=== PATIENT | female | born 1975 | race Hispanic/Latino ===

== ENCOUNTER 2018-01-22 17:28 | Inpatient (IN) | payer OTHER ==
[~2018-01-22] VITALS: Ht 157.5 cm; Wt 106.8 kg
[2018-01-22] MEDS ORDERED: ONDANSETRON HCL 4 MG ORAL DISINTEGRATING TAB ONE (18:45)
[2018-01-22 19:22] LABS: BASOPHILS % 0.1 % (0.0-1.0); EOSINOPHILS % 0.1 % (0.0-6.0); HEMATOCRIT 41.5 % (34.2-44.1); HEMOGLOBIN 14.3 g/dL (12.0-16.0); LYMPHOCYTES # (AUTO) 1.9 (1.0-3.2); LYMPHOCYTES % 13.8 % (18.0-39.1); MEAN CORPUSCULAR HGB CONC 34.5 g/dL (31-35); MEAN CORPUSCULAR VOLUME 87.2 fL (81-99); MONOCYTES # (AUTO) 1.1 (0.2-0.8); MONOCYTES % 8.4 % (4.4-11.3); NEUTROPHILS # (AUTO) 10.5 (2.1-6.9); PLATELET COUNT 271 x10e3/uL (140-360); RED BLOOD COUNT 4.76 x10e6/uL (3.6-5.1); RED CELL DISTRIBUTION WIDTH 12.1 % (11.7-14.4)
[2018-01-22 19:24] LABS: CLARITY,URINE CLEAR (CLEAR); COLOR,URINE YELLOW (YELLOW); KETONES,URINE 3+ (NEGATIVE); LEUKOCYTE ESTERASE ,URINE NEGATIVE (NEGATIVE); NITRITE,URINE NEGATIVE (NEGATIVE); PROTEIN,URINE DIPSTICK 1+ (NEGATIVE); URINE UROBILINOGEN 1 mg/dL (0.2 - 1)
[2018-01-22 19:25] LABS: BILIRUBIN,URINE 1+ (NEGATIVE); PREGNANCY TEST, URINE NEGATIVE (NEGATIVE)
[2018-01-22 19:30] LABS: BACTERIA,URINE RARE /HPF; EPITHELIAL CELLS,URINE FEW /LPF; MUCUS,URINE FEW (RARE)
[2018-01-22 19:42] LABS: ALANINE AMINOTRANSFERASE 14 IU/L (0-55); ALBUMIN/GLOBULIN RATIO 0.9 (0.8-2.0); ALKALINE PHOSPHATASE 63 IU/L (40-150); ANION GAP 12.5 mmol/L (8-16); BLOOD UREA NITROGEN 6 mg/dL (7-26); BUN/CREATININE RATIO 8 (6-25); CALCIUM 9.5 mg/dL (8.4-10.2); CARBON DIOXIDE 24 mmol/L (22-29); CHLORIDE 104 mmol/L (98-107); EST GLOMERULAR FILTRATION RATE > 60 ML/MIN (60-); GLUCOSE 117 mg/dL (74-118); MAGNESIUM 1.8 MG/DL (1.3-2.1); POTASSIUM 3.5 mmol/L (3.5-5.1); SODIUM 137 mmol/L (136-145)
[2018-01-22] MEDS ORDERED: PANTOPRAZOLE 40 MG 10ML VIAL IV STA (19:53)
[2018-01-22] MEDS ORDERED: MORPHINE SULFATE 2 MG/ML SYR IV STA (19:53)
[2018-01-22] MEDS ORDERED: SODIUM CHLORIDE 0.9% 1000ML 1,000 ML IV STA (19:53)
[2018-01-22] MEDS ORDERED: ASPIRIN 81 MG ENTERIC COATED PO STA (19:53)
[2018-01-22 20:10] LABS: INR 1.1; PROTHROMBIN TIME 13.4 seconds (11.9-14.5)
[2018-01-22] MEDS ORDERED: DIATRIZOATE MEGL/DIATRIZOA SOD 30 ML BTL PO ONE (20:10)
[2018-01-22 20:15] LABS: CREATINE KINASE 109 IU/L (29-168)
--- NOTE | 2018-01-22 22:12 | Diagnostic Imaging Report ---
EXAM: CT ABDOMEN AND PELVIS with IV CONTRAST DATE: 01/22/2018 7:53 PM Time stamp on Exam: 2137 hours INDICATION: Epigastric pain COMPARISON: None TECHNIQUE: The abdomen and pelvis were scanned using a multidetector helical scanner. Coronal and sagittal reformations were obtained. Routine protocol performed. IV Contrast: 100 cc Isovue 370 Oral Contrast: Gastrografin CTDIvol has been reviewed. It is below the limits set by the Radiation Protocol Committee (RPC). FINDINGS: LOWER THORAX: No consolidations LIVER: No masses BILIARY: Cholelithiasis, gallbladder wall thickening and hydrops. No ductal dilation. SPLEEN: No masses PANCREAS: No masses ADRENALS: No nodules KIDNEYS: Symmetric perfusion. No enhancing masses. No hydronephrosis. GI TRACT: No distention, wall thickening or evidence of obstruction. Normal appendix. VESSELS: Unremarkable PERITONEUM/RETROPERITONEUM: Trace free pelvic fluid. LYMPH NODES: No lymphadenopathy REPRODUCTIVE ORGANS: Unremarkable BLADDER: Unremarkable SOFT TISSUES: Unremarkable BONES: No suspicious bone lesions. IMPRESSION: Findings consistent with acute or chronic cholecystitis including large gallstones, wall thickening and hydropic gallbladder. No ductal dilation. Signed by: Dr. Mary Ahmadi M.D. on 01/22/2018 10:08 PM
--- NOTE | 2018-01-22 22:13 | Diagnostic Imaging Report ---
EXAM: CHEST 2 VIEWS, PA and lateral INDICATION: Epigastric pain COMPARISON: None FINDINGS: LINES/TUBES: None LUNGS: No consolidations or edema. PLEURA: No effusions or pneumothorax. HEART AND MEDIASTINUM: Normal size and contour. BONES AND SOFT TISSUES: No acute findings. IMPRESSION: No acute thoracic abnormality. Signed by: Dr. Mary Ahmadi M.D. on 01/22/2018 10:09 PM
[2018-01-22] MEDS ORDERED: SODIUM CHLORIDE 0.9% 50ML 50 ML ONE (22:23)
[2018-01-22] MEDS ORDERED: IOPAMIDOL 370 MG/ML 200 ML INFUS..BTL INJ ONE (22:24)
[2018-01-22] MEDS ORDERED: SODIUM CHLORIDE 0.9% 1000ML 1,000 ML IV SCH (23:35)
[2018-01-22] MEDS: PIPER-TAZ 3.375 GM 50 ML IV SCH (23:43)
--- OUTSIDE RECORDS SUMMARY | 2018-01-22 23:44 | XMS REPORT ---
Author Author [facility] Address Unknown Phone Unavailable Care Team Providers Care Bereavement Counselor Name Role Phone DAVI JAMESON Unavailable Unavailable Problems This patient has no known problems. Allergies, Adverse Reactions, Alerts This patient has no known allergies or adverse reactions. Medications This patient has no known medications. Results Test Description Test Time Test Comments Text Results Atomic Results Result Comments CT ABDOMEN/PELVIS W [place] [address] Patient Name: FUENTES ROGERS MR #: [id number] : 1975 Age/Sex: 42/F Req # : [id number] Adm Physician: Ordered by: DAVI JAMESON MD Report #: [id number] Location: ER Room/Bed: Procedure: [id number] CT/CT ABDOMEN/PELVIS W Exam Date: 01/22/18 Exam Time : 2129 REPORT STATUS: Signed EXAM: CT ABDOMEN AND PELVIS with IV CONTRAST DATE: 01/22/2018 7:53 PM Time stamp on Exam: 2137 hours INDICATION : Epigastric pain COMPARISON: None TECHNIQUE: The abdomen and pelvis were scanned using a multidetector helical scanner. Coronal and sagittal reformations were obtained. Routine protocol performed. IV Contrast: 100 cc Isovue 370 Oral Contrast: Gastrografin CTDIvol has been reviewed. It is below the limits set by the Radiation Protocol Committee (RPC). FINDINGS : LOWER THORAX: No consolidations LIVER: No masses BILIARY: Cholelithiasis, gallbladder wall thickening and hydrops. No ductal dilation. SPLEEN: No masses PANCREAS: No masses ADRENALS: No nodules KIDNEYS : Symmetric perfusion. No enhancing masses. No hydronephrosis. GI TRACT: No distention, wall thickening or evidence of obstruction. Normal appendix. VESSELS: Unremarkable PERITONEUM/RETROPERITONEUM: Trace free pelvic fluid. LYMPH NODES: No lymphadenopathy REPRODUCTIVE ORGANS: Unremarkable BLADDER: Unremarkable SOFT TISSUES: Unremarkable BONES: No suspicious bone lesions. IMPRESSION: Findings consistent with acute or chronic cholecystitis including large gallstones, wall thickening and hydropic gallbladder. No ductal dilation. Signed by: Dr. Nayeli Chao M.D. on 01/22/2018 10:08 PM Dictated By: NAYELI CHAO MD 07 Transcribed By: SUMMER on 01/22/182207 COPY TO: DAVI JAMESON MD CHEST 2 VIEWS [place] [address] Patient Name: FUENTES ROGERS MR #: [id number] : 1975 Age/Sex: 42/F Req #: [id number] Adm Physician: Ordered by: DAVI JAMESON MD Report #: [id number] Location: ER Room/Bed: Procedure: [id number] DX/CHEST 2 VIEWS Exam Date: 01/22/18 Exam Time: 2129 REPORT STATUS: Signed EXAM: CHEST 2 VIEWS, PA and lateral INDICATION: Epigastric pain COMPARISON: None FINDINGS: LINES/TUBES: None LUNGS: No consolidations or edema. PLEURA: No effusions or pneumothorax. HEART AND MEDIASTINUM: Normal size and contour. BONES AND SOFT TISSUES: No acute findings. IMPRESSION: No acute thoracic abnormality. Signed by: Dr. Nayeli Chao M.D. on 01/22/2018 10: 09 PM Dictated By: NAYELI CHAO MD 08 Transcribed By: SUMMER on 01/22/182208 COPY TO: DVAI JAMESON MD
[2018-01-22] MEDS ORDERED: ONDANSETRON HCL 4 MG ORAL DISINTEGRATING TAB PO PRN (23:45)
[2018-01-23] VITALS (8 sets, daily range): BP systolic 96–120; BP diastolic 58–69
[2018-01-23] MEDS: PROMETHAZINE 12.5MG/ NACL 0.9% 12.5 MG/50 ML BAG IV PRN (00:10)
[2018-01-23] MEDS: MORPHINE SULFATE 2 MG/ML SYR IV PRN ×2 (00:10→08:52)
[2018-01-23] MEDS: METRONIDAZOLE 500MG/NS 100ML 100 ML IV SCH ×4 (00:16→19:10)
[2018-01-23 03:38] LABS: CREATINE KINASE 80 IU/L (29-168)
[2018-01-23] MEDS: PIPER-TAZ 3.375 GM 50 ML IV SCH ×4 (05:17→23:38)
[2018-01-23] MEDS: ACETAMINOPHEN 325 MG TAB PO PRN ×2 (05:17→21:56)
[2018-01-23 07:04] LABS: BASOPHILS % 0.1 % (0.0-1.0); EOSINOPHILS % 0.1 % (0.0-6.0); HEMOGLOBIN 12.3 g/dL (12.0-16.0); LYMPHOCYTES # (AUTO) 1.6 (1.0-3.2); MEAN CORPUSCULAR HEMOGLOBIN 29.8 pg (28-32); MEAN CORPUSCULAR HGB CONC 34.2 g/dL (31-35); MEAN CORPUSCULAR VOLUME 87.2 fL (81-99); MONOCYTES # (AUTO) 1.3 (0.2-0.8); MONOCYTES % 9.3 % (4.4-11.3); NEUTROPHILS # (AUTO) 10.6 (2.1-6.9); NEUTROPHILS % 78.1 % (38.7-80.0); PLATELET COUNT 215 x10e3/uL (140-360); RED BLOOD COUNT 4.13 x10e6/uL (3.6-5.1); RED CELL DISTRIBUTION WIDTH 12.2 % (11.7-14.4)
[2018-01-23] MEDS: POTASSIUM CHLORIDE 40 MEQ in SODIUM CHLORIDE 0.9% 1000ML 1,000 ML IV SCH ×2 (07:05→20:00)
[2018-01-23 07:39] LABS: ALANINE AMINOTRANSFERASE 12 IU/L (0-55); ALBUMIN 3.1 g/dL (3.5-5.0); ALBUMIN/GLOBULIN RATIO 0.9 (0.8-2.0); ALKALINE PHOSPHATASE 54 IU/L (40-150); AMYLASE 53 U/L (25-125); ANION GAP 13.2 mmol/L (8-16); BLOOD UREA NITROGEN 5 mg/dL (7-26); BUN/CREATININE RATIO 7 (6-25); CALCIUM 8.4 mg/dL (8.4-10.2); CARBON DIOXIDE 21 mmol/L (22-29); CHLORIDE 104 mmol/L (98-107); CREATININE, SERUM 0.71 mg/dL (0.57-1.11); EST GLOMERULAR FILTRATION RATE > 60 ML/MIN (60-); GLUCOSE 110 mg/dL (74-118); LIPASE 14 U/L (8-78); POTASSIUM 3.2 mmol/L (3.5-5.1); SODIUM 135 mmol/L (136-145)
--- NOTE | 2018-01-23 10:02 | History and Physical ---
CHIEF COMPLAINT: Abdominal pain and acute cholecystitis. 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 Pain in the right upper quadrant. Patient had multiple workup done in the emergency room. CT scan of abdomen and pelvis showed consistent with acute cholecystitis, including large stone with thickening of gallbladder and hydrops of gallbladder. The patient is pending for surgical intervention. She did have leukocytosis of 13.6. Patient is stable at this time. PAST MEDICAL HISTORY: Noncontributory. 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 She does not smoke or use alcohol. No recreational drugs. ALLERGIES: NO KNOWN ALLERGY. HOME MEDICATIONS: None. REVIEW OF SYSTEMS: Abdominal pain, nausea and vomiting. PHYSICAL EXAMINATION VITAL SIGNS: Temperature is 98, blood pressure 109/56, pulse rate 97, respirations 22. GENERAL: The patient is not in acute distress. She is awake and in pain, however. HEENT: Normocephalic, atraumatic and anicteric. NECK: Supple grossly. PULMONARY: Clear. CARDIOVASCULAR: Regular rate and rhythm. ABDOMEN: Tenderness with some guarding. No rebound. EXTREMITIES: No cyanosis or edema. NEUROLOGIC: No focal deficit. LABORATORY: Sodium 132, potassium 3.2, chloride 104, bicarb 21, BUN 5, creatinine 0.7, glucose 110. WBC is 13.5, hemoglobin 12.3, hematocrit 36, and platelets is 250,000. CT scan consistent with gallbladder hydrops. IMPRESSION 1. Acute cholecystitis associated with gallbladder hydrops. 2. Abdominal pain, nausea and vomiting. 3. Hypokalemia. PLAN: Change IV fluids. Continue with antibiotics. Patient will need surgical intervention with Dr. Keo Johnson. Will monitor the patient closely. Patient is admitted for treatment. Job#: [id number] RI
[2018-01-23] MEDS ORDERED: POTASSIUM CHLORIDE 40 MEQ in SODIUM CHLORIDE 0.9% 1000ML 1,000 ML IV SCH (10:45)
[2018-01-23 11:36] LABS: CREATINE KINASE 79 IU/L (29-168)
--- NOTE | 2018-01-23 13:02 | Consultation ---
DATE OF CONSULTATION: January 23, 2018 CHIEF COMPLAINT: Abdominal pain. HISTORY OF PRESENT ILLNESS: The patient is a 42-year-old female with a 5-day history of pain in the epigastric area radiating to the back with nausea and vomiting. She also had some subjective fevers. No diarrhea. PAST MEDICAL HISTORY: Positive for no chronic medical illness. SURGICAL HISTORY: Positive for . ALLERGIES: SHE HAS NO DRUG ALLERGIES. SOCIAL HABITS: She does not smoke or drink alcohol. REVIEW OF SYSTEMS: No cough, chest pain or shortness of breath. PHYSICAL EXAMINATION VITAL SIGNS: Stable. Temperature is 101, blood pressure 100/60 with a pulse of 90. GENERAL: She is awake, alert and in moderate discomfort. HEENT: Sclera anicteric. NECK: Supple. LUNGS: Clear. HEART: Regular rate and rhythm. ABDOMEN: Soft with some guarding and tenderness in the epigastric and right upper quadrant. No rebound. EXTREMITIES: With no cyanosis or edema. White cell count is 14, hemoglobin 12. Creatinine of 0.7, bilirubin of 1.6, alkaline phosphatase of 54, and lipase 14. CT of the abdomen showed large stones with distention of the gallbladder wall. ASSESSMENT: Cholelithiasis and probable cholecystitis. PLAN: Laparoscopic cholecystectomy. The attendant risks discussed with the patient. Job#: [id number] SIGRID
[2018-01-23] MEDS ORDERED: BUPIVACAINE 0.25%/EPI 30ML SDV INJ ONE (13:11)
[2018-01-23] MEDS ORDERED: KETOROLAC TROMETHAMINE 30 MG/ML VIAL ONE ×2 (16:54→18:03)
[2018-01-23] MEDS ORDERED: ACETAMINOPHEN 1000 MG/100 ML 100 ML IV ONE (16:54)
[2018-01-23] MEDS ORDERED: ROCURONIUM BROMIDE 10 MG/ML 5ML VIAL ONE (18:03)
[2018-01-23] MEDS ORDERED: LIDOCAINE HCL 2% LOCAL INJ 5 ML SDV VIAL INJ ONE (18:03)
[2018-01-23] MEDS ORDERED: GLYCOPYRROLATE INJ 1MG/ 5 ML SYR ONE (18:03)
[2018-01-23] MEDS ORDERED: DEXAMETHASONE SOD PHOS INJ 4 MG/ML VIAL ONE (18:03)
[2018-01-23] MEDS ORDERED: NEOSTIGMINE 5 MG/5ML SYR ONE (18:03)
[2018-01-23] MEDS ORDERED: SEVOFLURANE INHAL SOLN 250 ML PEN BTL ONE (18:03)
[2018-01-23] MEDS ORDERED: ONDANSETRON HCL INJ 2 MG/ML VIAL ONE (18:03)
[2018-01-23] MEDS ORDERED: PROPOFOL IV EMULSION 10 MG/ML 20 ML VIAL ONE (18:03)
[2018-01-23] MEDS ORDERED: FENTANYL CITRATE/PF 100MCG/2 ML INJ ONE (18:24)
[2018-01-23] MEDS ORDERED: MIDAZOLAM HCL 2 MG/2 ML VIAL ONE (18:24)
[2018-01-23 18:50] LABS: CREATINE KINASE 70 IU/L (29-168)
[2018-01-24] VITALS (7 sets, daily range): BP systolic 98–112; BP diastolic 59–75
[2018-01-24] MEDS: METRONIDAZOLE 500MG/NS 100ML 100 ML IV SCH ×2 (00:35→06:13)
[2018-01-24] MEDS: POTASSIUM CHLORIDE 40 MEQ in SODIUM CHLORIDE 0.9% 1000ML 1,000 ML IV SCH (04:27)
[2018-01-24] MEDS: PIPER-TAZ 3.375 GM 50 ML IV SCH ×3 (05:23→17:00)
[2018-01-24] MEDS: MORPHINE SULFATE 2 MG/ML SYR IV PRN ×2 (06:26→09:25)
[2018-01-24 06:34] LABS: BASOPHILS % 0.1 % (0.0-1.0); HEMATOCRIT 33.5 % (34.2-44.1); HEMOGLOBIN 11.3 g/dL (12.0-16.0); LYMPHOCYTES # (AUTO) 1.2 (1.0-3.2); LYMPHOCYTES % 9.2 % (18.0-39.1); MEAN CORPUSCULAR HEMOGLOBIN 29.8 pg (28-32); MEAN CORPUSCULAR HGB CONC 33.7 g/dL (31-35); MEAN CORPUSCULAR VOLUME 88.4 fL (81-99); MONOCYTES # (AUTO) 0.9 (0.2-0.8); MONOCYTES % 7.1 % (4.4-11.3); NEUTROPHILS % 83.2 % (38.7-80.0); PLATELET COUNT 206 x10e3/uL (140-360); RED BLOOD COUNT 3.79 x10e6/uL (3.6-5.1); RED CELL DISTRIBUTION WIDTH 12.3 % (11.7-14.4)
[2018-01-24 07:07] LABS: ANION GAP 11.6 mmol/L (8-16); BLOOD UREA NITROGEN 10 mg/dL (7-26); BUN/CREATININE RATIO 14 (6-25); CALCIUM 8.4 mg/dL (8.4-10.2); CARBON DIOXIDE 21 mmol/L (22-29); CHLORIDE 106 mmol/L (98-107); EST GLOMERULAR FILTRATION RATE > 60 ML/MIN (60-); GLUCOSE 114 mg/dL (74-118); POTASSIUM 3.6 mmol/L (3.5-5.1); SODIUM 135 mmol/L (136-145)
[2018-01-24] MEDS: PROMETHAZINE 12.5MG/ NACL 0.9% 12.5 MG/50 ML BAG IV PRN (09:25)
[2018-01-24] MEDS ORDERED: KETOROLAC TROMETHAMINE 30 MG/ML VIAL IV PRN (10:00)
[2018-01-24] MEDS ORDERED: MAGNESIUM/ALUMINUM/SIMETHICONE 30 ML UDC PO PRN (10:00)
[2018-01-24] MEDS: FAMOTIDINE 20 MG TAB PO SCH ×2 (11:00→17:00)
[2018-01-24] MEDS: ACETAMINOPHEN/CODEINE 300MG - 30MG TAB PO PRN ×2 (15:01→21:00)
[2018-01-25] VITALS (8 sets, daily range): BP systolic 107–116; BP diastolic 58–84
[2018-01-25] MEDS: ACETAMINOPHEN/CODEINE 300MG - 30MG TAB PO PRN ×2 (01:08→05:46)
[2018-01-25] MEDS ORDERED: SODIUM CHLORIDE 0.9% 250ML 250 ML ONE (04:59)
[2018-01-25] MEDS: PIPER-TAZ 3.375 GM 50 ML IV SCH ×4 (05:45→22:00)
[2018-01-25 07:26] LABS: BASOPHILS % 0.3 % (0.0-1.0); EOSINOPHILS # (AUTO) 0.1 (0.0-0.4); EOSINOPHILS % 1.1 % (0.0-6.0); HEMOGLOBIN 10.8 g/dL (12.0-16.0); LYMPHOCYTES # (AUTO) 1.7 (1.0-3.2); LYMPHOCYTES % 22.2 % (18.0-39.1); MEAN CORPUSCULAR HEMOGLOBIN 30.3 pg (28-32); MEAN CORPUSCULAR HGB CONC 33.8 g/dL (31-35); MEAN CORPUSCULAR VOLUME 89.6 fL (81-99); MONOCYTES # (AUTO) 0.6 (0.2-0.8); MONOCYTES % 7.8 % (4.4-11.3); NEUTROPHILS # (AUTO) 5.2 (2.1-6.9); NEUTROPHILS % 68.2 % (38.7-80.0); PLATELET COUNT 236 x10e3/uL (140-360); RED BLOOD COUNT 3.57 x10e6/uL (3.6-5.1); RED CELL DISTRIBUTION WIDTH 12.8 % (11.7-14.4)
[2018-01-25 07:58] LABS: ANION GAP 9.1 mmol/L (8-16); BLOOD UREA NITROGEN 7 mg/dL (7-26); BUN/CREATININE RATIO 10 (6-25); CALCIUM 8.3 mg/dL (8.4-10.2); CARBON DIOXIDE 24 mmol/L (22-29); CHLORIDE 103 mmol/L (98-107); CREATININE, SERUM 0.69 mg/dL (0.57-1.11); EST GLOMERULAR FILTRATION RATE > 60 ML/MIN (60-); GLUCOSE 80 mg/dL (74-118); POTASSIUM 3.1 mmol/L (3.5-5.1); SODIUM 133 mmol/L (136-145)
[2018-01-25] MEDS: FAMOTIDINE 20 MG TAB PO SCH ×2 (09:01→16:16)
[2018-01-25] MEDS ORDERED: POTASSIUM CHLORIDE 10 MEQ TABCR PO ONE (12:15)
[2018-01-25] MEDS: MORPHINE SULFATE 2 MG/ML SYR IV PRN (14:09)
[2018-01-25] MEDS: ACETAMINOPHEN 325 MG TAB PO PRN (16:16)
[2018-01-26] VITALS: BP 121/82
[2018-01-26] MEDS: PIPER-TAZ 3.375 GM 50 ML IV SCH ×3 (05:20→22:00)
[2018-01-26] MEDS: MORPHINE SULFATE 2 MG/ML SYR IV PRN ×2 (06:07→21:11)
[2018-01-26 07:04] LABS: BASOPHILS % 0.3 % (0.0-1.0); EOSINOPHILS # (AUTO) 0.2 (0.0-0.4); EOSINOPHILS % 2.5 % (0.0-6.0); HEMATOCRIT 34.5 % (34.2-44.1); HEMOGLOBIN 11.5 g/dL (12.0-16.0); LYMPHOCYTES # (AUTO) 1.9 (1.0-3.2); LYMPHOCYTES % 28.1 % (18.0-39.1); MEAN CORPUSCULAR HEMOGLOBIN 29.5 pg (28-32); MEAN CORPUSCULAR HGB CONC 33.3 g/dL (31-35); MEAN CORPUSCULAR VOLUME 88.5 fL (81-99); MONOCYTES # (AUTO) 0.6 (0.2-0.8); NEUTROPHILS # (AUTO) 4.2 (2.1-6.9); NEUTROPHILS % 60.7 % (38.7-80.0); PLATELET COUNT 261 x10e3/uL (140-360); RED CELL DISTRIBUTION WIDTH 12.6 % (11.7-14.4)
[2018-01-26 07:24] LABS: MAGNESIUM 1.5 MG/DL (1.3-2.1)
[2018-01-26] MEDS: FAMOTIDINE 20 MG TAB PO SCH ×2 (07:30→15:00)
[2018-01-26 07:56] LABS: ANION GAP 11.6 mmol/L (8-16); BLOOD UREA NITROGEN 8 mg/dL (7-26); BUN/CREATININE RATIO 12 (6-25); CALCIUM 8.5 mg/dL (8.4-10.2); CARBON DIOXIDE 23 mmol/L (22-29); CHLORIDE 104 mmol/L (98-107); CREATININE, SERUM 0.66 mg/dL (0.57-1.11); EST GLOMERULAR FILTRATION RATE > 60 ML/MIN (60-); GLUCOSE 90 mg/dL (74-118); POTASSIUM 3.6 mmol/L (3.5-5.1); SODIUM 135 mmol/L (136-145)
[2018-01-26 08:00] VITALS: BP_SYST 109; BP_SYST 99; BP_DIAS 68; BP_DIAS 74
[2018-01-26 08:15] VITALS: BP 99/68
[2018-01-26] MEDS ORDERED: POTASSIUM CHLORIDE 10 MEQ TABCR PO ONE (10:00)
[2018-01-26] MEDS: HYDROCODONE/APAP 7.5MG-325MG 1 EA TAB PO PRN ×2 (11:52→16:20)
[2018-01-26 12:00] VITALS: BP 105/77
[2018-01-26 16:00] VITALS: BP 107/81
[2018-01-26] MEDS ORDERED: SODIUM CHLORIDE 0.9% 250ML 250 ML ONE (21:17)
[2018-01-27] MEDS: PIPER-TAZ 3.375 GM 50 ML IV SCH (05:41)
[2018-01-27] MEDS: MORPHINE SULFATE 2 MG/ML SYR IV PRN (05:50)
[2018-01-27] MEDS: ACETAMINOPHEN 325 MG TAB PO PRN (06:01)
[2018-01-27 06:52] LABS: ALANINE AMINOTRANSFERASE 14 IU/L (0-55); ALBUMIN 2.5 g/dL (3.5-5.0); ALBUMIN/GLOBULIN RATIO 0.7 (0.8-2.0); ALKALINE PHOSPHATASE 76 IU/L (40-150); ANION GAP 9.9 mmol/L (8-16); BLOOD UREA NITROGEN 7 mg/dL (7-26); BUN/CREATININE RATIO 11 (6-25); CALCIUM 8.6 mg/dL (8.4-10.2); CARBON DIOXIDE 25 mmol/L (22-29); CHLORIDE 106 mmol/L (98-107); CREATININE, SERUM 0.66 mg/dL (0.57-1.11); EST GLOMERULAR FILTRATION RATE > 60 ML/MIN (60-); GLUCOSE 84 mg/dL (74-118); POTASSIUM 3.9 mmol/L (3.5-5.1); SODIUM 137 mmol/L (136-145)
[2018-01-27] MEDS: FAMOTIDINE 20 MG TAB PO SCH ×2 (07:49→16:35)
[2018-01-27 07:59] VITALS: BP 112/80
[2018-01-27 08:30] VITALS: BP 112/80
[2018-01-27] MEDS: HYDROCODONE/APAP 7.5MG-325MG 1 EA TAB PO PRN ×4 (09:53→22:36)
[2018-01-27] MEDS ORDERED: KETOROLAC TROMETHAMINE 30 MG/ML VIAL IV PRN (10:15)
[2018-01-27] MEDS: SENNOSIDES 8.6 MG TAB PO SCH ×2 (10:42→16:35)
[2018-01-27] MEDS: CELECOXIB 100 MG CAP PO SCH ×2 (10:42→16:35)
[2018-01-27 12:00] VITALS: BP 114/55
[2018-01-27 16:28] VITALS: BP 106/79
[2018-01-27] MEDS ORDERED: ENOXAPARIN SOD INJ 40 MG/0.4 ML SYR SC SCH (17:00)
[2018-01-27 20:00] VITALS: BP 113/83
[2018-01-27 20:37] VITALS: BP 113/83
[2018-01-28 01:23] VITALS: BP 88/58
[2018-01-28] MEDS: HYDROCODONE/APAP 7.5MG-325MG 1 EA TAB PO PRN (05:33)
[2018-01-28 05:40] VITALS: BP 99/66
[2018-01-28 06:25] LABS: BASOPHILS % 0.5 % (0.0-1.0); EOSINOPHILS # (AUTO) 0.2 (0.0-0.4); EOSINOPHILS % 2.9 % (0.0-6.0); HEMOGLOBIN 11.4 g/dL (12.0-16.0); LYMPHOCYTES # (AUTO) 2.3 (1.0-3.2); LYMPHOCYTES % 35.2 % (18.0-39.1); MEAN CORPUSCULAR HEMOGLOBIN 29.8 pg (28-32); MEAN CORPUSCULAR HGB CONC 32.6 g/dL (31-35); MEAN CORPUSCULAR VOLUME 91.4 fL (81-99); MONOCYTES # (AUTO) 0.7 (0.2-0.8); NEUTROPHILS # (AUTO) 3.3 (2.1-6.9); NEUTROPHILS % 50.5 % (38.7-80.0); PLATELET COUNT 306 x10e3/uL (140-360); RED BLOOD COUNT 3.83 x10e6/uL (3.6-5.1); RED CELL DISTRIBUTION WIDTH 12.3 % (11.7-14.4)
[2018-01-28 06:55] LABS: ALANINE AMINOTRANSFERASE 12 IU/L (0-55); ALBUMIN 2.4 g/dL (3.5-5.0); ALBUMIN/GLOBULIN RATIO 0.7 (0.8-2.0); ALKALINE PHOSPHATASE 72 IU/L (40-150); ANION GAP 12.1 mmol/L (8-16); BLOOD UREA NITROGEN 11 mg/dL (7-26); BUN/CREATININE RATIO 15 (6-25); CALCIUM 8.6 mg/dL (8.4-10.2); CARBON DIOXIDE 26 mmol/L (22-29); CHLORIDE 106 mmol/L (98-107); CREATININE, SERUM 0.73 mg/dL (0.57-1.11); EST GLOMERULAR FILTRATION RATE > 60 ML/MIN (60-); GLUCOSE 94 mg/dL (74-118); POTASSIUM 4.1 mmol/L (3.5-5.1); SODIUM 140 mmol/L (136-145)
[2018-01-28 08:00] VITALS: BP 111/78
[2018-01-28 08:14] VITALS: BP 111/78
[2018-01-28] MEDS: CELECOXIB 100 MG CAP PO SCH (09:03)
[2018-01-28] MEDS: FAMOTIDINE 20 MG TAB PO SCH (09:03)
[2018-01-28] MEDS: SENNOSIDES 8.6 MG TAB PO SCH (09:03)
--- NOTE | 2018-01-28 09:05 | Discharge Summary ---
PHYSIOLOGY TEACHER: Dr. Keo Johnson. FINAL DIAGNOSES 1. Acute cholecystitis. 2. Gallbladder hydrops. 3. Fever, leukocytosis. 4. Gangrenous gallbladder. 5. Slow recovery post surgery. SUMMARY: This 42-year-old female came in with acute abdominal pain with gallstone acute cholecystitis and gallbladder hydrops. The patient underwent laparoscopic cholecystectomy. Patient had a gangrenous gallbladder. She had a drain in place with significant output. Patient had a slow recovery with multiple complaints of pain and difficulty walking postoperatively. She was having reflux, epigastric pain, and lower extremity pain. Postoperatively, the patient had recurrent nausea and vomiting. Currently, the patient is much improved. She is comfortable. The ALONDRA drain was removed yesterday. She has tolerated her diet today. Patient is to go home today. She will follow up with Dr. Johnson next week. DISCHARGE MEDICATIONS 1. Omeprazole 40 mg daily. 2. Celebrex 100 mg q.12 h. p.r.n. for pain. 3. Zofran 4 mg sublingual q.4 h. as needed for nausea and vomiting. The patient does not need further antibiotics. She will follow up with Dr. Johnson for release back to work. Note for the patient to be excused from work. The patient is stable and discharged home today. ACTIVITY: As tolerated. DIET: Soft GI diet. FOLLOWUP: As planned. Job#: [id number]
== END 2018-01-28 10:51 | disposition home or self-care (01) | DRG 418 ==
LOC: ER 17:28 → ERHOLD 23:42 → MED/SURG2 01-23 00:05
PROVIDERS: ADMIT Internal Medicine; ATTEND Internal Medicine
PROC: 0FT44ZZ Resection of Gallbladder, Percutaneous Endoscopic Approach (ICD-10-PCS; principal; 2018-01-23 14:16)
DX: K80.00 Calculus of gallbladder with acute cholecystitis without obstruction (principal); K82.1 Hydrops of gallbladder; E87.6 Hypokalemia; E86.0 Dehydration; K91.0 Vomiting following gastrointestinal surgery
CPT/HCPCS: 36415; 71046; 74177; 80048; 80053; 81001; 81025; 82150; 82550; 82553; 83605; 83690; 83735; 84100; 84484; 85025; 85610; 85730; 88304; 93005; 96367; 96374; 99284; J1100; J1650; J1885; J2001; J2250; J2270; J2405; J2543; J2550; J3480; J7030; J7050; Q9967